=== PATIENT | male | born 1965 | race Caucasian/White ===

== ENCOUNTER 2017-02-19 10:58 | Inpatient (IN) | payer MEDICAID, OTHER ==
[~2017-02-19] VITALS: Ht 182.9 cm; Wt 129.2 kg
[~2017-02-19 10:58] MED LIST: ARIP10TA33 PO; GABA-826 PO; GABA300C10 PO; LISI5TAB7 PO; OXYC5TAB3 PO; PANT20TA3 PO; SUMA25TA3 PO
[2017-02-19 12:03] LABS: HEMATOCRIT 46.2 % (39.2-51.8); HEMOGLOBIN 15.8 g/dL (13.7-18.0); WHITE BLOOD COUNT 7.3 x10^3/uL (3.4-10)
[2017-02-19 12:13] LABS: ASPARTATE AMINO TRANSFERASE 36 U/L (15-37); BLOOD UREA NITROGEN 12 mg/dL (7-18)
[2017-02-19 12:16] LABS: ACETAMINOPHEN < 2 mcg/mL (10-30)
[2017-02-19 13:20] LABS: DAU SCREEN DISCLAIMER
[2017-02-19] MEDS ORDERED: LORazepam 2 MG/ML, 1ML IVPush PRN (16:00)
[2017-02-19] MEDS ORDERED: hydrALAzine 20 MG/ML, 1ML IVPush PRN (16:00)
[2017-02-19] MEDS ORDERED: morphine SULFATE 10 MG/ML, 1ML IVPush PRN (16:00)
[2017-02-19] MEDS: HYDROcodone/APAP 5/325 TABLET PO PRN ×2 (16:28→17:43)
[2017-02-19] MEDS: SODIUM CHLORIDE 0.9% 1,000 ML IV SCH (17:56)
[2017-02-19 18:24] LABS: DAU SCREEN DISCLAIMER
[2017-02-19] MEDS ORDERED: GADOBUTROL 10 MMOL/10 ML PFS ONE (19:18)
[2017-02-19 19:47] VITALS: BP 137/91
[2017-02-19 22:01] VITALS: BP 137/91
[2017-02-20] MEDS ORDERED: OMNIPAQUE 350 MG/ML, 100ML BOTTLE ONE (00:43)
[2017-02-20 02:25] VITALS: BP 136/82
[2017-02-20] MEDS: SODIUM CHLORIDE 0.9% 1,000 ML IV SCH ×3 (03:05→18:14)
[2017-02-20 07:50] VITALS: BP 131/83
[2017-02-20] MEDS: ARIPIPRAZOLE 5 MG TABLET PO SCH (09:35)
[2017-02-20] MEDS: LISINOPRIL 5 MG TABLET PO SCH (09:35)
[2017-02-20] MEDS: ACETAMINOPHEN 325 MG TABLET PO PRN ×2 (09:38→18:09)
[2017-02-20 13:39] VITALS: BP 143/75
[2017-02-20] MEDS: ONDANSETRON 2MG/ML, 2ML IVPush PRN (18:11)
[2017-02-20 20:07] VITALS: BP 137/62
[2017-02-21 01:35] VITALS: BP 134/79
[2017-02-21] MEDS: SODIUM CHLORIDE 0.9% 1,000 ML IV SCH ×2 (02:40→10:38)
[2017-02-21 08:23] VITALS: BP 151/92
[2017-02-21] MEDS: ARIPIPRAZOLE 5 MG TABLET PO SCH (09:07)
[2017-02-21] MEDS: LISINOPRIL 5 MG TABLET PO SCH (09:07)
[2017-02-21] MEDS: ACETAMINOPHEN 325 MG TABLET PO PRN (09:09)
[2017-02-21 13:02] VITALS: BP 148/82
[2017-02-21] MEDS ORDERED: HEPARIN 5,000 UNITS/ML, 1ML IV PRN (15:30)
[2017-02-21] MEDS ORDERED: HEPARIN 25,000 UNITS/500ML PMX 500 ML IV PRN (15:30)
[2017-02-21] MEDS ORDERED: OMNIPAQUE 350 MG/ML, 100ML BOTTLE ONE (15:41)
[2017-02-21 16:26] LABS: HEMATOCRIT 46.5 % (39.2-51.8); HEMOGLOBIN 15.4 g/dL (13.7-18.0); WHITE BLOOD COUNT 6.8 x10^3/uL (3.4-10)
[2017-02-21] MEDS: HEPARIN 25,000 UNITS/500ML PMX 500 ML IV PRN (16:52)
[2017-02-21] MEDS: WARFARIN 7.5 MG TABLET PO-COUM SCH (16:54)
[2017-02-21 18:54] VITALS: BP 147/90
[2017-02-21] MEDS: ONDANSETRON 2MG/ML, 2ML IVPush PRN (23:23)
[2017-02-21] MEDS: LISINOPRIL 10 MG TABLET PO SCH (23:24)
[2017-02-22] MEDS: HEPARIN 5,000 UNITS/ML, 1ML IV PRN ×4 (00:27→21:31)
[2017-02-22 02:00] VITALS: BP 142/88
[2017-02-22] MEDS: LISINOPRIL 10 MG TABLET PO SCH ×2 (07:42→21:34)
[2017-02-22] MEDS: ARIPIPRAZOLE 5 MG TABLET PO SCH (07:42)
[2017-02-22] MEDS: ACETAMINOPHEN 325 MG TABLET PO PRN ×2 (07:42→13:28)
[2017-02-22 13:20] VITALS: BP 149/91
[2017-02-22] MEDS: HEPARIN 25,000 UNITS/500ML PMX 500 ML IV PRN (13:23)
[2017-02-22] MEDS ORDERED: hydrALAzine 20 MG/ML, 1ML IVPush PRN (17:30)
[2017-02-22] MEDS: WARFARIN 7.5 MG TABLET PO-COUM SCH (18:02)
[2017-02-22 19:18] VITALS: BP 150/96
[2017-02-23 02:20] VITALS: BP 150/86
[2017-02-23] MEDS: HEPARIN 25,000 UNITS/500ML PMX 500 ML IV PRN ×2 (05:19→19:42)
[2017-02-23 06:39] VITALS: BP 137/89
[2017-02-23] MEDS: ARIPIPRAZOLE 5 MG TABLET PO SCH (08:49)
[2017-02-23] MEDS: LISINOPRIL 10 MG TABLET PO SCH ×2 (08:49→19:44)
[2017-02-23] MEDS: HEPARIN 5,000 UNITS/ML, 1ML IV PRN (11:26)
[2017-02-23 13:25] VITALS: BP 143/93
[2017-02-23] MEDS: ACETAMINOPHEN 325 MG TABLET PO PRN (18:25)
[2017-02-23] MEDS: WARFARIN 7.5 MG TABLET PO-COUM SCH (18:25)
[2017-02-23 19:50] VITALS: BP 121/90
[2017-02-24 01:40] VITALS: BP 144/96
[2017-02-24] MEDS: HEPARIN 5,000 UNITS/ML, 1ML IV PRN ×2 (03:23→10:10)
[2017-02-24] MEDS: ARIPIPRAZOLE 5 MG TABLET PO SCH (08:44)
[2017-02-24] MEDS: LISINOPRIL 10 MG TABLET PO SCH ×2 (08:44→19:45)
[2017-02-24 08:45] VITALS: BP 138/99
[2017-02-24] MEDS: HEPARIN 25,000 UNITS/500ML PMX 500 ML IV PRN ×2 (10:14→19:45)
[2017-02-24 13:13] VITALS: BP 137/94
[2017-02-24] MEDS: ACETAMINOPHEN 325 MG TABLET PO PRN (18:20)
[2017-02-24] MEDS: WARFARIN 7.5 MG TABLET PO-COUM SCH (18:20)
[2017-02-24 18:39] VITALS: BP 131/88
[2017-02-25 02:58] VITALS: BP 117/77
[2017-02-25] MEDS: HEPARIN 25,000 UNITS/500ML PMX 500 ML IV PRN ×2 (05:22→15:40)
[2017-02-25 07:06] VITALS: BP 121/85
[2017-02-25] MEDS: LISINOPRIL 10 MG TABLET PO SCH ×2 (08:32→20:02)
[2017-02-25] MEDS: ARIPIPRAZOLE 5 MG TABLET PO SCH (08:32)
[2017-02-25] MEDS: ACETAMINOPHEN 325 MG TABLET PO PRN (08:37)
[2017-02-25 13:12] VITALS: BP 113/77
[2017-02-25] MEDS: WARFARIN 5 MG TABLET PO-COUM SCH (17:26)
[2017-02-25 19:09] VITALS: BP 128/80
[2017-02-26 01:18] VITALS: BP 121/76
[2017-02-26] MEDS: HEPARIN 25,000 UNITS/500ML PMX 500 ML IV PRN ×3 (01:20→22:48)
[2017-02-26 05:58] LABS: ANTI-Xa-UNFRACTIONATED HEP 0.51 IU/mL (0.30-0.70)
[2017-02-26 08:30] VITALS: BP 132/84
[2017-02-26] MEDS: LISINOPRIL 10 MG TABLET PO SCH ×2 (08:30→20:42)
[2017-02-26] MEDS ORDERED: ARIPIPRAZOLE 10 MG TABLET PO SCH (09:00)
[2017-02-26 14:27] VITALS: BP 101/72
[2017-02-26] MEDS: WARFARIN 5 MG TABLET PO-COUM SCH (17:51)
[2017-02-26 18:32] VITALS: BP 148/83
[2017-02-26] MEDS ORDERED: ARIPIPRAZOLE 5 MG TABLET PO PRN (23:30)
[2017-02-27 03:42] VITALS: BP 101/72
[2017-02-27 05:28] LABS: ANTI-Xa-UNFRACTIONATED HEP 0.42 IU/mL (0.30-0.70)
[2017-02-27 08:36] VITALS: BP 125/82
[2017-02-27] MEDS: LISINOPRIL 10 MG TABLET PO SCH ×2 (08:55→22:04)
[2017-02-27] MEDS: HEPARIN 25,000 UNITS/500ML PMX 500 ML IV PRN (09:03)
[2017-02-27 14:30] VITALS: BP 111/77
[2017-02-27] MEDS ORDERED: WARFARIN 5 MG TABLET PO-COUM SCH (18:00)
[2017-02-27] MEDS ORDERED: WARFARIN 1 MG TABLET PO-COUM SCH (18:00)
[2017-02-27 19:55] VITALS: BP 112/81
[2017-02-27] MEDS: ENOXAPARIN 120MG/0.8ML SQ SCH (22:04)
[2017-02-27] MEDS: ARIPIPRAZOLE 10 MG TABLET PO SCH (22:05)
[2017-02-28 02:51] VITALS: BP 115/75
[2017-02-28 07:35] VITALS: BP 127/83
[2017-02-28] MEDS: LISINOPRIL 10 MG TABLET PO SCH ×2 (09:48→22:14)
[2017-02-28] MEDS: ENOXAPARIN 120MG/0.8ML SQ SCH ×2 (11:20→22:14)
[2017-02-28 14:30] VITALS: BP 116/84
[2017-02-28] MEDS: WARFARIN 7.5 MG TABLET PO-COUM SCH (18:37)
[2017-02-28] MEDS ORDERED: ARIPIPRAZOLE 5 MG TABLET PO PRN (19:30)
[2017-02-28] MEDS ORDERED: hydrALAzine 20 MG/ML, 1ML IVPush PRN (19:30)
[2017-02-28] MEDS ORDERED: morphine SULFATE 10 MG/ML, 1ML IVPush PRN (19:30)
[2017-02-28] MEDS ORDERED: LORazepam 2 MG/ML, 1ML IVPush PRN (19:30)
[2017-02-28 19:50] VITALS: BP 113/81
[2017-02-28] MEDS: ARIPIPRAZOLE 10 MG TABLET PO SCH (22:14)
[2017-03-01 03:54] VITALS: BP 127/78
[2017-03-01 08:00] VITALS: BP 109/74
[2017-03-01] MEDS: LISINOPRIL 10 MG TABLET PO SCH ×2 (10:32→22:19)
[2017-03-01] MEDS: HYDROcodone/APAP 5/325 TABLET PO PRN (10:32)
[2017-03-01] MEDS: ENOXAPARIN 120MG/0.8ML SQ SCH ×2 (10:32→22:19)
[2017-03-01 13:34] VITALS: BP 114/66
[2017-03-01] MEDS: WARFARIN 7.5 MG TABLET PO-COUM SCH (18:10)
[2017-03-01] MEDS: ACETAMINOPHEN 325 MG TABLET PO PRN (18:10)
[2017-03-01 19:22] VITALS: BP 110/82
[2017-03-01] MEDS: ARIPIPRAZOLE 10 MG TABLET PO SCH (22:19)
[2017-03-02 02:20] VITALS: BP 106/72
[2017-03-02 06:50] VITALS: BP 108/72
[2017-03-02] MEDS: LISINOPRIL 10 MG TABLET PO SCH ×2 (08:34→19:20)
[2017-03-02 14:20] VITALS: BP 115/78
[2017-03-02 18:47] VITALS: BP 125/85
[2017-03-02] MEDS: ARIPIPRAZOLE 10 MG TABLET PO SCH (19:20)
[2017-03-02] MEDS: WARFARIN 7.5 MG TABLET PO-COUM SCH (19:21)
[2017-03-03 03:21] VITALS: BP 139/76
[2017-03-03 08:38] VITALS: BP 109/75
[2017-03-03] MEDS: LISINOPRIL 10 MG TABLET PO SCH ×2 (09:12→20:48)
[2017-03-03 13:17] VITALS: BP 123/87
[2017-03-03] MEDS: WARFARIN 7.5 MG TABLET PO-COUM SCH (18:14)
[2017-03-03 19:02] VITALS: BP 127/75
[2017-03-03] MEDS: ARIPIPRAZOLE 10 MG TABLET PO SCH (20:48)
[2017-03-04 02:00] VITALS: BP 108/73
[2017-03-04 07:45] VITALS: BP 127/76
[2017-03-04] MEDS: LISINOPRIL 10 MG TABLET PO SCH ×2 (08:38→21:43)
[2017-03-04 15:14] VITALS: BP 126/82
[2017-03-04] MEDS: WARFARIN 7.5 MG TABLET PO-COUM SCH (17:26)
[2017-03-04 20:00] VITALS: BP 118/79
[2017-03-04] MEDS: ARIPIPRAZOLE 10 MG TABLET PO SCH (21:43)
[2017-03-04] MEDS: ACETAMINOPHEN 325 MG TABLET PO PRN (21:43)
[2017-03-05 00:15] VITALS: BP 102/63
[2017-03-05 07:35] VITALS: BP 106/68
[2017-03-05] MEDS: LISINOPRIL 10 MG TABLET PO SCH ×2 (09:05→21:04)
[2017-03-05 15:22] VITALS: BP 106/74
[2017-03-05] MEDS: ACETAMINOPHEN 325 MG TABLET PO PRN (15:47)
[2017-03-05] MEDS: WARFARIN 7.5 MG TABLET PO-COUM SCH (18:30)
[2017-03-05 18:56] VITALS: BP 115/78
[2017-03-05] MEDS: ARIPIPRAZOLE 10 MG TABLET PO SCH (21:04)
[2017-03-06 00:46] VITALS: BP 116/82
[2017-03-06 07:41] VITALS: BP 105/66
[2017-03-06] MEDS: LISINOPRIL 10 MG TABLET PO SCH ×2 (09:00→20:42)
[2017-03-06] MEDS: HYDROcodone/APAP 5/325 TABLET PO PRN (09:34)
[2017-03-06 13:31] VITALS: BP 131/89
[2017-03-06] MEDS: WARFARIN 7.5 MG TABLET PO-COUM SCH (19:07)
[2017-03-06] MEDS: ACETAMINOPHEN 325 MG TABLET PO PRN (19:10)
[2017-03-06 20:00] VITALS: BP 115/81
[2017-03-06] MEDS ORDERED: LISINOPRIL 5 MG TABLET ONE (20:40)
[2017-03-06] MEDS: ARIPIPRAZOLE 10 MG TABLET PO SCH (20:42)
[2017-03-07 07:22] VITALS: BP 100/63
[2017-03-07 09:20] VITALS: BP 104/63
[2017-03-07] MEDS: LISINOPRIL 10 MG TABLET PO SCH (09:25)
[2017-03-07] MEDS: ACETAMINOPHEN 325 MG TABLET PO PRN (09:31)
[2017-03-07] MEDS ORDERED: LISI-167 PO (12:20)
[2017-03-07] MEDS ORDERED: ARIP10TA33 PO (12:20)
[2017-03-07] MEDS ORDERED: WARF7.5T PO-COUM (12:20)
== END 2017-03-07 12:50 | DRG 70 ==
LOC: ED 12:34 → EDIP 14:17 → 3NE 15:41 → 3E 03-06 19:53
PROVIDERS: ADMIT Hospitalist; ATTEND Hospitalist
DX: G93.40 Encephalopathy, unspecified (principal); G08 Intracranial and intraspinal phlebitis and thrombophlebitis; D68.69 Other thrombophilia; F22 Delusional disorders; I50.9 Heart failure, unspecified; E11.40 Type 2 diabetes mellitus with diabetic neuropathy, unspecified; I11.0 Hypertensive heart disease with heart failure; R45.851 Suicidal ideations; F31.9 Bipolar disorder, unspecified; M19.90 Unspecified osteoarthritis, unspecified site; M10.9 Gout, unspecified; K21.9 Gastro-esophageal reflux disease without esophagitis; G89.29 Other chronic pain; F43.10 Post-traumatic stress disorder, unspecified; E11.9 Type 2 diabetes mellitus without complications; G43.909 Migraine, unspecified, not intractable, without status migrainosus; H54.7 Unspecified visual loss; Z91.83 Wandering in diseases classified elsewhere; Z59.0 Homelessness; Z82.49 Family history of ischemic heart disease and other diseases of the circulatory system; X31.XXXA Exposure to excessive natural cold, initial encounter; Z79.899 Other long term (current) drug therapy; Z87.01 Personal history of pneumonia (recurrent)
CPT/HCPCS: 36415; 70470; 70496; 70553; 71010; 80053; 80307; 80329; 81003; 82140; 84439; 84443; 85025; 85520; 85610; 87040; 99285; A9585; J1644; J1650; J2405; Q9967; G0479; G0480; J7030

== ENCOUNTER 2017-04-10 11:56 | Emergency (ER) | payer MEDICAID, OTHER ==
[~2017-04-10] VITALS: Ht 193 cm; Wt 131.0 kg
[~2017-04-10 11:56] MED LIST changes: +LISI-167 PO; +WARF7.5T PO-COUM
[2017-04-10 11:58] VITALS: BP 138/89
== END 2017-04-10 13:10 | disposition home or self-care (01) ==
LOC: ED 12:45
DX: Z76.0 Encounter for issue of repeat prescription (principal); I10 Essential (primary) hypertension; E11.9 Type 2 diabetes mellitus without complications
CPT/HCPCS: 36415; 85610; 99283

== ENCOUNTER 2018-07-26 15:03 | Inpatient (IN) | payer MEDICAID ==
[~2018-07-26] VITALS: Ht 193 cm; Wt 140.8 kg
[~2018-07-26 15:03] MED LIST changes: +BUTA-177 PO; +ENOX60SY4 SQ; +ENOX80SY4 SQ; +WARF10TA43 PO
[2018-07-26] MEDS ORDERED: ALBUTEROL/IPRATROPIUM 2.5MG/0.5MG, 3 ML ONE (15:09)
--- NOTE | 2018-07-26 15:13 | NUR ---
PTS BELONGINGS LOCKED UP IN SECURE LOCKER AND LABELED. PT WILL BE MOVED TO A SECURED ROOM WHEN AVAILABLE. PT PLACED ON CONT. 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
--- NOTE | 2018-07-26 15:13 | NUR ---
BIBA FOR SUICIDE ATTEMPT. PT INGESTED ARSENIC X 2 TODAY "I THOUGHT IT WOULD BE QUICK". FIRST INGESTION WAS AROUND 9AM STATES IT WAS ABOUT A PINCH, WHICH HE WAS ABLE TO KEEP DOWN. THEN AROUND "LUNCHTIME" INGESTED ABOUT A TEASPOON, STARTED VOMITING ALMOST IMMEDIATELY. NOW STATES HE HAS A SHARP HEADACHE, DIZZY, FACE AND TONGUE ARE NUMB. 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
--- NOTE | 2018-07-26 15:50 | NUR ---
i am assuming care of this pt from leonel (rashid) at this time. sbar report was exchanged at the bedside.
[2018-07-26 15:56] LABS: BASOPHILS # (AUTO) 0.08 x10^3/uL (0-0.1); BASOPHILS % (AUTO) 1 % (0-1); EOSINOPHILS # (AUTO) 0.14 x10^3/uL (0-0.4); EOSINOPHILS % (AUTO) 2 % (1-7); LYMPHOCYTES # (AUTO) 3.04 x10^3/uL (1-3.4); LYMPHOCYTES % (AUTO) 36 % (22-44); MD NO; MEAN CORPUSCULAR HEMOGLOBIN 30.2 pg (27.5-34.5); MEAN CORPUSCULAR HGB CONC 33.3 g/dL (33.2-36.2); MEAN CORPUSCULAR VOLUME 90.6 fL (81-97); MEAN PLATELET VOLUME 10.9 fL (7.4-10.4); MONOCYTES % (AUTO) 9 % (2-9); NEUTROPHILS # (AUTO) 4.44 x10^3/uL (1.8-6.8); NEUTROPHILS % (AUTO) 52 % (42-75); PLATELET COUNT 191 x10^3/uL (130-400); RED BLOOD COUNT 5.46 x10^6/uL (4.38-5.82); RED CELL DISTRIBUTION WIDTH 13.7 % (9.4-14.8)
[2018-07-26 15:57] LABS: PH, VENOUS 7.424 pH (7.320-7.420)
--- NOTE | 2018-07-26 16:01 | NUR ---
TASK RN: PT IS RESTING IN ROOM WITH NADN, EQUAL CHEST RISE AND GOOD CAP REFILL, NADN. NO NEEDS AT THIS TIME.
[2018-07-26 16:09] LABS: ALBUMIN 4.1 g/dL (3.4-5.0); CALCIUM 8.4 mg/dL (8.5-10.1); CHLORIDE 111 mmol/L (98-107)
[2018-07-26 16:10] LABS: O2 FLOW ROOM AIR L/min
[2018-07-26 16:14] LABS: ALANINE AMINOTRANSFERASE 52 U/L (12-78); ALKALINE PHOSPHATASE 87 U/L (45-117); ANION GAP 6 mmol/L (5-15); BILIRUBIN,TOTAL 0.5 mg/dL (0.2-1.0); CREATININE 1.07 mg/dL (0.7-1.3)
[2018-07-26 16:15] LABS: ACETAMINOPHEN < 2 mcg/mL (10-30); SALICYLATE LEVEL < 1.7 mg/dL (2.8-20.0)
[2018-07-26 16:22] LABS: INTERNATIONAL NORMALIZED RATIO 0.96 (0.93-1.1); PROTHROMBIN TIME 10.1 Seconds (9.6-11.5)
--- NOTE | 2018-07-26 16:44 | NUR ---
PT IS RESTING COMFORTABLY ON AN E.R. GURNEY WHILE AWAITING THE RESULTS OF DIAGNOSTICS. THERE ARE NO ACUTE CHANGES NTED AT THIS TIME, AND I WILL CONTINUE TO MONITOR AND TREAT ORDERED, WELL PRN.
--- NOTE | 2018-07-26 17:42 | NUR ---
PT AMBULATED TO AND FROM THE RESTROOM WITH A STEADY GAIT. URINE SAMPLE PROVIDED, AND WALKED TO THE LAB FOR ANALYSIS.
--- NOTE | 2018-07-26 17:51 | NUR ---
[facility] REQUESTED FOR PT NOURISHMENT AND COMFORT.
[2018-07-26] MEDS ORDERED: ENALAPRILAT 1.25 MG/ML, 2ML IVPush PRN (18:00)
[2018-07-26] MEDS ORDERED: ONDANSETRON ODT 4 MG PO PRN (18:00)
[2018-07-26] MEDS ORDERED: GUAIFENESIN/DM 200-20MG, 10ML UDC PO PRN (18:00)
[2018-07-26 18:07] LABS: AMPHETAMINE SCREEN, URINE Negative (Negative); BARBITURATE SCREEN, URINE Negative (Negative); BENZODIAZEPINE SCREEN, URINE Negative (Negative); CANNABINOID SCREEN, URINE Negative (Negative); COCAINE SCREEN, URINE Negative (Negative); METHADONE SCREEN, URINE Negative (Negative); OPIATE SCREEN, URINE Negative (Negative)
--- NOTE | 2018-07-26 18:27 | NUR ---
PACKET FAXED TO [facility], [facility], [facility]
--- NOTE | 2018-07-26 18:57 | NUR ---
RAQUEL (RN) IS ASSUMING CARE OF THIS PT AT THIS TIME. SBAR REPORT WAS EXCHANGED AT THE BEDSIDE.
--- NOTE | 2018-07-26 19:00 | NUR ---
REPORT RECEIVED FROM ANNIKA KAUR, ASSUMED CARE OF PT. P RESTING QUIETLY, NO DISTRESS NOTED, STATES CAN'T GET TASTE OUT OF HIS MOUTH. CALM AND COOPERATIVE, NO S/S INTERNAL BLEEDING
[2018-07-26] MEDS: LACTATED RINGERS 1,000 ML IV SCH (20:30)
--- NOTE | 2018-07-26 20:35 | NUR ---
PT RESTING QUIETLY, NO DISTRESS NOTED, VSS, CALL LIGHT IN REACH, SITTER OUTSIDE DOOR
--- NOTE | 2018-07-26 21:30 | NUR ---
PT RESTING QUIETLY, NO DISTRESS NOTED, SITTER OUTSIDE DOOR
--- NOTE | 2018-07-26 22:22 | NUR ---
REPORT GIVEN TO ANNIKA WARREN
[2018-07-26 22:35] VITALS: BP 147/87
[2018-07-26] MEDS ORDERED: IBUP-1623 PO (23:10)
[2018-07-26] MEDS ORDERED: ACET325C5 PO (23:10)
[2018-07-26] MEDS ORDERED: DM/P1POW2 PO (23:10)
[2018-07-27 00:48] VITALS: BP 137/88
[2018-07-27] MEDS: CYCLOBENZAPRINE 10 MG TABLET PO PRN ×3 (01:02→20:42)
[2018-07-27 06:56] LABS: BASOPHILS # (AUTO) 0.03 x10^3/uL (0-0.1); BASOPHILS % (AUTO) 0 % (0-1); EOSINOPHILS # (AUTO) 0.18 x10^3/uL (0-0.4); EOSINOPHILS % (AUTO) 3 % (1-7); LYMPHOCYTES # (AUTO) 1.64 x10^3/uL (1-3.4); LYMPHOCYTES % (AUTO) 26 % (22-44); MD NO; MEAN CORPUSCULAR HEMOGLOBIN 30.1 pg (27.5-34.5); MEAN CORPUSCULAR HGB CONC 33.1 g/dL (33.2-36.2); MEAN CORPUSCULAR VOLUME 90.7 fL (81-97); MEAN PLATELET VOLUME 10.1 fL (7.4-10.4); MONOCYTES # (AUTO) 0.57 x10^3/uL (0.2-0.8); MONOCYTES % (AUTO) 9 % (2-9); NEUTROPHILS # (AUTO) 3.81 x10^3/uL (1.8-6.8); NEUTROPHILS % (AUTO) 61 % (42-75); PLATELET COUNT 164 x10^3/uL (130-400); RED BLOOD COUNT 5.24 x10^6/uL (4.38-5.82); RED CELL DISTRIBUTION WIDTH 13.8 % (9.4-14.8)
[2018-07-27 07:06] LABS: ALBUMIN 3.3 g/dL (3.4-5.0); ANION GAP 4 mmol/L (5-15); CHLORIDE 111 mmol/L (98-107)
[2018-07-27 07:18] LABS: ALANINE AMINOTRANSFERASE 45 U/L (12-78); ALKALINE PHOSPHATASE 75 U/L (45-117); BILIRUBIN,TOTAL 0.6 mg/dL (0.2-1.0); TOTAL PROTEIN 6.4 g/dL (6.4-8.2)
[2018-07-27 09:53] VITALS: BP 146/86
[2018-07-27 15:02] VITALS: BP 143/87
[2018-07-27] MEDS: LACTATED RINGERS 1,000 ML IV SCH (15:03)
[2018-07-27 20:32] VITALS: BP 138/89
[2018-07-28 02:00] VITALS: BP 123/71
[2018-07-28] MEDS: CYCLOBENZAPRINE 10 MG TABLET PO PRN (05:10)
[2018-07-28 07:56] VITALS: BP 127/73
[2018-07-28] MEDS: LACTATED RINGERS 1,000 ML IV SCH (09:12)
[2018-07-28 14:06] VITALS: BP 122/76
[2018-07-28] MEDS: ACETAMINOPHEN 325 MG TABLET PO PRN ×2 (16:51→20:31)
[2018-07-28 19:24] VITALS: BP 150/93
== END 2018-07-28 21:45 | DRG 918 ==
LOC: ED 17:43 → EDIP 17:44 → 4EST 22:38
PROVIDERS: ADMIT Hospitalist; ATTEND Hospitalist
DX: T60.4X2A Toxic effect of rodenticides, intentional self-harm, initial encounter (principal); D68.59 Other primary thrombophilia; R45.851 Suicidal ideations; T39.1X2A Poisoning by 4-Aminophenol derivatives, intentional self-harm, initial encounter; Y92.89 Other specified places as the place of occurrence of the external cause; E11.9 Type 2 diabetes mellitus without complications; F12.90 Cannabis use, unspecified, uncomplicated; F31.9 Bipolar disorder, unspecified; F43.10 Post-traumatic stress disorder, unspecified; I10 Essential (primary) hypertension; M19.90 Unspecified osteoarthritis, unspecified site; Z81.8 Family history of other mental and behavioral disorders
CPT/HCPCS: 36415; 80053; 80307; 80329; 82803; 83735; 84100; 84443; 85025; 85610; 85730; 93005; 94640; 99285; G0378; G0480; J7120

== ENCOUNTER 2018-07-28 14:16 | Inpatient (IN) | payer MEDICAID ==
[~2018-07-28] VITALS: Ht 193 cm; Wt 128.2 kg
[~2018-07-28 14:16] MED LIST changes: +ACET325C5 PO; +DM/P1POW2 PO; +IBUP-1623 PO
[2018-07-28 20:45] VITALS: BP_SYST 123; BP_SYST 138; BP_SYST 150; BP_DIAS 91; BP_DIAS 92
[2018-07-28] MEDS ORDERED: PLEASE ENTER HEIGHT AND WEIGHT MC SCH (21:23)
[2018-07-28] MEDS ORDERED: POLYETHYLENE GLYCOL 17 GM PACKET PO PRN ×2 (21:30→22:00)
[2018-07-28] MEDS ORDERED: BISACODYL 10 MG SUPP PR PRN (21:30)
[2018-07-28] MEDS ORDERED: DOCUSATE 100 MG CAPSULE PO PRN (21:30)
[2018-07-28] MEDS ORDERED: hydrALAzine 20 MG/ML, 1ML IVPush PRN (22:00)
[2018-07-28] MEDS: MELATONIN 5 MG TABLET PO SCH (22:50)
[2018-07-29 07:41] VITALS: BP 129/86
[2018-07-29] MEDS: ACETAMINOPHEN 325 MG TABLET PO PRN (15:21)
[2018-07-29] MEDS: MELATONIN 5 MG TABLET PO SCH (20:27)
[2018-07-29] MEDS: OXCARBAZEPINE 150 MG TABLET PO SCH (20:27)
[2018-07-29 20:37] VITALS: BP 133/84
[2018-07-30 07:39] VITALS: BP 136/86
[2018-07-30] MEDS: BUPROPION SR 150 MG TABLET PO SCH (09:06)
[2018-07-30] MEDS: ACETAMINOPHEN 325 MG TABLET PO PRN (09:31)
[2018-07-30 19:47] VITALS: BP 137/98
[2018-07-30] MEDS: MELATONIN 5 MG TABLET PO SCH (19:56)
[2018-07-30] MEDS: QUETIAPINE 100MG TABLET PO SCH (19:57)
[2018-07-30] MEDS: OXCARBAZEPINE 150 MG TABLET PO SCH (19:57)
[2018-07-31 07:23] VITALS: BP 113/85
[2018-07-31] MEDS: BUPROPION SR 150 MG TABLET PO SCH (09:26)
[2018-07-31] MEDS: OXCARBAZEPINE 150 MG TABLET PO SCH (19:34)
[2018-07-31] MEDS: QUETIAPINE 100MG TABLET PO SCH (19:34)
[2018-07-31] MEDS: ACETAMINOPHEN 325 MG TABLET PO PRN (19:34)
[2018-07-31] MEDS: MELATONIN 5 MG TABLET PO SCH (19:34)
[2018-07-31 20:00] VITALS: BP 134/97
[2018-08-01 07:45] VITALS: BP 123/81
[2018-08-01] MEDS: BUPROPION SR 150 MG TABLET PO SCH (09:40)
[2018-08-01] MEDS: ACETAMINOPHEN 325 MG TABLET PO PRN (14:40)
[2018-08-01 20:02] VITALS: BP 134/95
[2018-08-01] MEDS: OXCARBAZEPINE 150 MG TABLET PO SCH (20:21)
[2018-08-01] MEDS: MELATONIN 5 MG TABLET PO SCH (20:21)
[2018-08-01] MEDS: QUETIAPINE 100MG TABLET PO SCH (20:21)
[2018-08-02] MEDS: BUPROPION SR 150 MG TABLET PO SCH (08:15)
[2018-08-02] MEDS: ACETAMINOPHEN 325 MG TABLET PO PRN (08:18)
[2018-08-02 08:34] VITALS: BP 138/89
[2018-08-02 19:27] VITALS: BP 123/83
[2018-08-02] MEDS: OXCARBAZEPINE 150 MG TABLET PO SCH (20:24)
[2018-08-02] MEDS: MELATONIN 5 MG TABLET PO SCH (20:24)
[2018-08-02] MEDS: QUETIAPINE 100MG TABLET PO SCH (20:24)
[2018-08-03 07:30] VITALS: BP 136/86
[2018-08-03] MEDS: BUPROPION SR 150 MG TABLET PO SCH (11:35)
[2018-08-03 19:54] VITALS: BP 146/78
[2018-08-03] MEDS: OXCARBAZEPINE 150 MG TABLET PO SCH (20:49)
[2018-08-03] MEDS: MELATONIN 5 MG TABLET PO SCH (20:50)
[2018-08-03] MEDS: QUETIAPINE 100MG TABLET PO SCH (20:52)
[2018-08-04 08:00] VITALS: BP 118/82
[2018-08-04] MEDS: BUPROPION SR 150 MG TABLET PO SCH (08:49)
[2018-08-04] MEDS: ALLOPURINOL 300 MG TABLET PO SCH (08:49)
[2018-08-04] MEDS: ACETAMINOPHEN 325 MG TABLET PO PRN ×2 (08:49→20:53)
[2018-08-04 20:00] VITALS: BP 110/72
[2018-08-04] MEDS: MELATONIN 5 MG TABLET PO SCH (20:52)
[2018-08-04] MEDS: OXCARBAZEPINE 150 MG TABLET PO SCH (20:53)
[2018-08-04] MEDS: QUETIAPINE 100MG TABLET PO SCH (20:53)
[2018-08-05 08:00] VITALS: BP 142/86
[2018-08-05] MEDS: BUPROPION SR 150 MG TABLET PO SCH (08:59)
[2018-08-05] MEDS: ACETAMINOPHEN 325 MG TABLET PO PRN (08:59)
[2018-08-05] MEDS: ALLOPURINOL 300 MG TABLET PO SCH (08:59)
[2018-08-05 20:15] VITALS: BP 137/97
[2018-08-05] MEDS: OXCARBAZEPINE 150 MG TABLET PO SCH (21:28)
[2018-08-05] MEDS: MELATONIN 5 MG TABLET PO SCH (21:28)
[2018-08-05] MEDS: QUETIAPINE 100MG TABLET PO SCH (21:28)
[2018-08-06 07:34] VITALS: BP 127/88
[2018-08-06] MEDS: BUPROPION SR 150 MG TABLET PO SCH (08:32)
[2018-08-06] MEDS: ALLOPURINOL 300 MG TABLET PO SCH (08:33)
[2018-08-06 19:53] VITALS: BP 128/95
[2018-08-06] MEDS: OXCARBAZEPINE 150 MG TABLET PO SCH (21:55)
[2018-08-06] MEDS: QUETIAPINE 100MG TABLET PO SCH (21:56)
[2018-08-06] MEDS: MELATONIN 5 MG TABLET PO SCH (21:56)
[2018-08-07 07:24] VITALS: BP 149/90
[2018-08-07 07:56] LABS: CHOL/HDL RATIO 6.6; LDL/HDL RATIO 3.9 (0.5-3.0)
[2018-08-07] MEDS: BUPROPION SR 150 MG TABLET PO SCH (09:36)
[2018-08-07] MEDS: ALLOPURINOL 300 MG TABLET PO SCH (09:36)
[2018-08-07 19:55] VITALS: BP 138/100
[2018-08-07] MEDS: MELATONIN 5 MG TABLET PO SCH (20:16)
[2018-08-07] MEDS: QUETIAPINE 100MG TABLET PO SCH (20:16)
[2018-08-07] MEDS: OXCARBAZEPINE 150 MG TABLET PO SCH (20:16)
[2018-08-08 07:40] VITALS: BP 136/88
[2018-08-08] MEDS: BUPROPION SR 150 MG TABLET PO SCH (08:20)
[2018-08-08] MEDS: ALLOPURINOL 300 MG TABLET PO SCH (08:21)
[2018-08-08 19:47] VITALS: BP 130/94
[2018-08-08] MEDS: QUETIAPINE 100MG TABLET PO SCH (19:54)
[2018-08-08] MEDS: MELATONIN 5 MG TABLET PO SCH (19:54)
[2018-08-08] MEDS: OXCARBAZEPINE 150 MG TABLET PO SCH (19:54)
[2018-08-09 07:19] VITALS: BP 132/81
[2018-08-09] MEDS: ALLOPURINOL 300 MG TABLET PO SCH (09:00)
[2018-08-09] MEDS: BUPROPION SR 150 MG TABLET PO SCH (09:00)
[2018-08-09] MEDS: OXCARBAZEPINE 150 MG TABLET PO SCH (20:04)
[2018-08-09] MEDS: MELATONIN 5 MG TABLET PO SCH ×2 (20:04→20:07)
[2018-08-09] MEDS: QUETIAPINE 100MG TABLET PO SCH (20:04)
[2018-08-09 20:05] VITALS: BP 139/97
[2018-08-10 07:32] VITALS: BP 130/95
[2018-08-10] MEDS: BUPROPION SR 150 MG TABLET PO SCH (09:57)
[2018-08-10] MEDS: ALLOPURINOL 300 MG TABLET PO SCH (09:57)
[2018-08-10 20:00] VITALS: BP 129/81
[2018-08-10] MEDS: QUETIAPINE 100MG TABLET PO SCH (20:28)
[2018-08-10] MEDS: MELATONIN 5 MG TABLET PO SCH (20:28)
[2018-08-10] MEDS: OXCARBAZEPINE 150 MG TABLET PO SCH (20:28)
[2018-08-11 07:50] VITALS: BP 137/92
[2018-08-11] MEDS: ALLOPURINOL 300 MG TABLET PO SCH (08:30)
[2018-08-11] MEDS: BUPROPION SR 150 MG TABLET PO SCH (08:30)
[2018-08-11] MEDS: QUETIAPINE 100MG TABLET PO SCH (20:24)
[2018-08-11] MEDS: OXCARBAZEPINE 150 MG TABLET PO SCH (20:24)
[2018-08-11] MEDS: MELATONIN 5 MG TABLET PO SCH (20:24)
[2018-08-11 20:35] VITALS: BP 100/65
[2018-08-12 07:36] VITALS: BP 129/88
[2018-08-12] MEDS: BUPROPION SR 150 MG TABLET PO SCH (08:08)
[2018-08-12] MEDS: ALLOPURINOL 300 MG TABLET PO SCH (08:08)
[2018-08-12 19:54] VITALS: BP 129/86
[2018-08-12] MEDS: OXCARBAZEPINE 150 MG TABLET PO SCH (20:07)
[2018-08-12] MEDS: MELATONIN 5 MG TABLET PO SCH (20:07)
[2018-08-12] MEDS: QUETIAPINE 100MG TABLET PO SCH (20:07)
[2018-08-13 07:56] VITALS: BP 104/68
[2018-08-13] MEDS: ALLOPURINOL 300 MG TABLET PO SCH (08:24)
[2018-08-13] MEDS: BUPROPION SR 150 MG TABLET PO SCH (08:24)
[2018-08-13 20:10] VITALS: BP 131/88
[2018-08-13] MEDS: MELATONIN 5 MG TABLET PO SCH (20:19)
[2018-08-13] MEDS: OXCARBAZEPINE 150 MG TABLET PO SCH (20:19)
[2018-08-13] MEDS: QUETIAPINE 100MG TABLET PO SCH (20:19)
[2018-08-14 07:25] VITALS: BP 108/77
[2018-08-14] MEDS: BUPROPION SR 150 MG TABLET PO SCH (08:40)
[2018-08-14] MEDS: ALLOPURINOL 300 MG TABLET PO SCH (08:40)
[2018-08-14 19:52] VITALS: BP 120/83
[2018-08-14] MEDS: OXCARBAZEPINE 150 MG TABLET PO SCH (20:35)
[2018-08-14] MEDS: QUETIAPINE 100MG TABLET PO SCH (20:35)
[2018-08-14] MEDS: MELATONIN 5 MG TABLET PO SCH (20:36)
[2018-08-15 07:47] VITALS: BP 138/87
[2018-08-15] MEDS: BUPROPION SR 150 MG TABLET PO SCH (09:08)
[2018-08-15] MEDS: ALLOPURINOL 300 MG TABLET PO SCH (09:08)
[2018-08-15 19:54] VITALS: BP 147/90
[2018-08-15] MEDS: ACETAMINOPHEN 325 MG TABLET PO PRN (20:28)
[2018-08-15] MEDS: MELATONIN 5 MG TABLET PO SCH (20:28)
[2018-08-15] MEDS: QUETIAPINE 100MG TABLET PO SCH (20:28)
[2018-08-15] MEDS: OXCARBAZEPINE 150 MG TABLET PO SCH (20:28)
[2018-08-16 07:35] VITALS: BP 124/85
[2018-08-16] MEDS: BUPROPION SR 150 MG TABLET PO SCH (08:23)
[2018-08-16] MEDS: ALLOPURINOL 300 MG TABLET PO SCH (08:24)
[2018-08-16 19:35] VITALS: BP 128/87
[2018-08-16] MEDS: QUETIAPINE 100MG TABLET PO SCH ×2 (20:39→20:43)
[2018-08-16] MEDS: OXCARBAZEPINE 150 MG TABLET PO SCH ×2 (20:39→20:43)
[2018-08-16] MEDS: MELATONIN 5 MG TABLET PO SCH ×2 (20:39→20:43)
[2018-08-17 07:08] VITALS: BP 129/83
[2018-08-17] MEDS: ALLOPURINOL 300 MG TABLET PO SCH (08:38)
[2018-08-17] MEDS: BUPROPION SR 150 MG TABLET PO SCH (08:39)
[2018-08-17 19:41] VITALS: BP 126/86
[2018-08-17] MEDS: OXCARBAZEPINE 150 MG TABLET PO SCH (20:10)
[2018-08-17] MEDS: MELATONIN 5 MG TABLET PO SCH (20:10)
[2018-08-17] MEDS: QUETIAPINE 100MG TABLET PO SCH (20:10)
[2018-08-18 07:36] VITALS: BP 115/80
[2018-08-18] MEDS: BUPROPION SR 150 MG TABLET PO SCH ×2 (09:00→13:07)
[2018-08-18] MEDS: ALLOPURINOL 300 MG TABLET PO SCH (09:00)
[2018-08-18 19:46] VITALS: BP 125/78
[2018-08-18] MEDS: OXCARBAZEPINE 150 MG TABLET PO SCH (20:18)
[2018-08-18] MEDS: MELATONIN 5 MG TABLET PO SCH (20:18)
[2018-08-18] MEDS: QUETIAPINE 100MG TABLET PO SCH (20:18)
[2018-08-19 07:52] VITALS: BP 132/83
[2018-08-19] MEDS: ALLOPURINOL 300 MG TABLET PO SCH (08:16)
[2018-08-19] MEDS: BUPROPION SR 150 MG TABLET PO SCH ×2 (08:16→11:43)
[2018-08-19 14:04] LABS: BASOPHILS # (AUTO) 0.03 x10^3/uL (0-0.1); BASOPHILS % (AUTO) 1 % (0-1); EOSINOPHILS # (AUTO) 0.11 x10^3/uL (0-0.4); EOSINOPHILS % (AUTO) 2 % (1-7); LYMPHOCYTES # (AUTO) 1.28 x10^3/uL (1-3.4); LYMPHOCYTES % (AUTO) 23 % (22-44); MD NO; MEAN CORPUSCULAR HEMOGLOBIN 30.7 pg (27.5-34.5); MEAN CORPUSCULAR HGB CONC 34.1 g/dL (33.2-36.2); MEAN CORPUSCULAR VOLUME 89.8 fL (81-97); MEAN PLATELET VOLUME 10.7 fL (7.4-10.4); MONOCYTES # (AUTO) 0.45 x10^3/uL (0.2-0.8); MONOCYTES % (AUTO) 8 % (2-9); NEUTROPHILS # (AUTO) 3.64 x10^3/uL (1.8-6.8); NEUTROPHILS % (AUTO) 66 % (42-75); PLATELET COUNT 186 x10^3/uL (130-400); RED BLOOD COUNT 5.63 x10^6/uL (4.38-5.82); RED CELL DISTRIBUTION WIDTH 13.5 % (9.4-14.8)
[2018-08-19 14:11] VITALS: BP 129/87
[2018-08-19 14:13] LABS: ALANINE AMINOTRANSFERASE 55 U/L (12-78); ALBUMIN 3.9 g/dL (3.4-5.0); ANION GAP 8 mmol/L (5-15); CALCIUM 8.9 mg/dL (8.5-10.1); CHLORIDE 110 mmol/L (98-107); CREATININE 1.08 mg/dL (0.7-1.3)
[2018-08-19 14:16] LABS: ALKALINE PHOSPHATASE 93 U/L (45-117); BILIRUBIN,TOTAL 0.7 mg/dL (0.2-1.0); TOTAL PROTEIN 6.9 g/dL (6.4-8.2)
[2018-08-19] MEDS: SODIUM CHLORIDE 0.9% 1,000 ML IV SCH (20:00)
[2018-08-19] MEDS: MELATONIN 5 MG TABLET PO SCH ×2 (20:34→21:00)
[2018-08-19] MEDS: QUETIAPINE 100MG TABLET PO SCH ×2 (20:35→21:00)
[2018-08-19] MEDS: OXCARBAZEPINE 150 MG TABLET PO SCH ×2 (20:35→21:00)
[2018-08-19 22:11] VITALS: BP 135/96
[2018-08-20] MEDS: SODIUM CHLORIDE 0.9% 1,000 ML IV SCH ×2 (04:55→13:15)
[2018-08-20 07:42] VITALS: BP 138/88
[2018-08-20] MEDS: BUPROPION SR 150 MG TABLET PO SCH ×2 (08:55→12:00)
[2018-08-20] MEDS: ALLOPURINOL 300 MG TABLET PO SCH (08:55)
[2018-08-20] MEDS: FENOFIBRATE 145 MG TABLET PO SCH (08:55)
[2018-08-20 19:59] VITALS: BP 132/82
[2018-08-20] MEDS: OXCARBAZEPINE 150 MG TABLET PO SCH (21:03)
[2018-08-20] MEDS: QUETIAPINE 100MG TABLET PO SCH (21:03)
[2018-08-20] MEDS: MELATONIN 5 MG TABLET PO SCH (21:03)
[2018-08-21 07:15] VITALS: BP 120/78
[2018-08-21] MEDS: ALLOPURINOL 300 MG TABLET PO SCH (08:38)
[2018-08-21] MEDS: BUPROPION SR 150 MG TABLET PO SCH ×2 (08:39→12:14)
[2018-08-21] MEDS: FENOFIBRATE 145 MG TABLET PO SCH (08:39)
[2018-08-21] MEDS: ACETAMINOPHEN 325 MG TABLET PO PRN (12:16)
[2018-08-21 19:47] VITALS: BP 138/87
[2018-08-21] MEDS: MELATONIN 5 MG TABLET PO SCH (20:00)
[2018-08-21] MEDS: OXCARBAZEPINE 150 MG TABLET PO SCH (20:00)
[2018-08-21] MEDS: QUETIAPINE 100MG TABLET PO SCH (20:00)
[2018-08-22 07:39] VITALS: BP 133/84
[2018-08-22] MEDS: ALLOPURINOL 300 MG TABLET PO SCH (09:52)
[2018-08-22] MEDS: FENOFIBRATE 145 MG TABLET PO SCH (09:52)
[2018-08-22] MEDS: BUPROPION SR 150 MG TABLET PO SCH ×2 (09:52→12:28)
[2018-08-22 19:52] VITALS: BP 148/98
[2018-08-22] MEDS: OXCARBAZEPINE 150 MG TABLET PO SCH (20:33)
[2018-08-22] MEDS: MELATONIN 5 MG TABLET PO SCH (20:33)
[2018-08-22] MEDS: QUETIAPINE 100MG TABLET PO SCH (20:33)
[2018-08-23 07:48] VITALS: BP 138/87
[2018-08-23] MEDS: FENOFIBRATE 145 MG TABLET PO SCH (08:36)
[2018-08-23] MEDS: ACETAMINOPHEN 325 MG TABLET PO PRN (08:36)
[2018-08-23] MEDS: BUPROPION SR 150 MG TABLET PO SCH ×3 (08:36→12:32)
[2018-08-23] MEDS: ALLOPURINOL 300 MG TABLET PO SCH (08:37)
[2018-08-23 19:29] VITALS: BP 121/83
[2018-08-23] MEDS: OXCARBAZEPINE 150 MG TABLET PO SCH (20:23)
[2018-08-23] MEDS: MELATONIN 5 MG TABLET PO SCH (20:23)
[2018-08-23] MEDS: QUETIAPINE 100MG TABLET PO SCH (20:23)
[2018-08-24 07:50] VITALS: BP 125/88
[2018-08-24] MEDS: ALLOPURINOL 300 MG TABLET PO SCH (08:14)
[2018-08-24] MEDS: BUPROPION SR 150 MG TABLET PO SCH ×2 (08:14→13:13)
[2018-08-24] MEDS: FENOFIBRATE 145 MG TABLET PO SCH (08:14)
[2018-08-24 19:20] VITALS: BP 123/83
[2018-08-24] MEDS: QUETIAPINE 100MG TABLET PO SCH (21:17)
[2018-08-24] MEDS: OXCARBAZEPINE 150 MG TABLET PO SCH (21:17)
[2018-08-24] MEDS: MELATONIN 5 MG TABLET PO SCH (21:17)
[2018-08-25 07:20] VITALS: BP 118/73
[2018-08-25] MEDS: ALLOPURINOL 300 MG TABLET PO SCH (08:14)
[2018-08-25] MEDS: FENOFIBRATE 145 MG TABLET PO SCH (08:14)
[2018-08-25] MEDS: BUPROPION SR 150 MG TABLET PO SCH ×2 (08:14→14:26)
[2018-08-25 19:50] VITALS: BP 137/107
[2018-08-25] MEDS: OXCARBAZEPINE 150 MG TABLET PO SCH (20:24)
[2018-08-25] MEDS: MELATONIN 5 MG TABLET PO SCH (20:24)
[2018-08-25] MEDS: ACETAMINOPHEN 325 MG TABLET PO PRN (20:24)
[2018-08-25] MEDS: QUETIAPINE 100MG TABLET PO SCH (20:25)
[2018-08-26 07:29] VITALS: BP 126/82
[2018-08-26] MEDS: BUPROPION SR 150 MG TABLET PO SCH ×2 (08:41→11:48)
[2018-08-26] MEDS: FENOFIBRATE 145 MG TABLET PO SCH (08:41)
[2018-08-26] MEDS: ALLOPURINOL 300 MG TABLET PO SCH (08:41)
[2018-08-26 19:37] VITALS: BP 128/85
[2018-08-26] MEDS: QUETIAPINE 100MG TABLET PO SCH (20:28)
[2018-08-26] MEDS: MELATONIN 5 MG TABLET PO SCH (20:28)
[2018-08-26] MEDS: OXCARBAZEPINE 150 MG TABLET PO SCH (20:28)
[2018-08-27 07:13] VITALS: BP 119/86
[2018-08-27] MEDS: BUPROPION SR 150 MG TABLET PO SCH ×2 (08:04→11:15)
[2018-08-27] MEDS: ALLOPURINOL 300 MG TABLET PO SCH (08:05)
[2018-08-27] MEDS: FENOFIBRATE 145 MG TABLET PO SCH (08:05)
[2018-08-27 19:23] VITALS: BP 142/90
[2018-08-27] MEDS: QUETIAPINE 100MG TABLET PO SCH (20:56)
[2018-08-27] MEDS: MELATONIN 5 MG TABLET PO SCH (20:56)
[2018-08-27] MEDS: OXCARBAZEPINE 150 MG TABLET PO SCH (20:56)
[2018-08-28 07:12] VITALS: BP 132/86
[2018-08-28] MEDS: FENOFIBRATE 145 MG TABLET PO SCH (09:12)
[2018-08-28] MEDS: BUPROPION SR 150 MG TABLET PO SCH ×2 (09:12→12:52)
[2018-08-28] MEDS: ALLOPURINOL 300 MG TABLET PO SCH (09:12)
[2018-08-28 19:27] VITALS: BP 125/92
[2018-08-28] MEDS: QUETIAPINE 100MG TABLET PO SCH (20:10)
[2018-08-28] MEDS: OXCARBAZEPINE 150 MG TABLET PO SCH (20:10)
[2018-08-28] MEDS: MELATONIN 5 MG TABLET PO SCH (20:10)
[2018-08-29 07:11] VITALS: BP 145/90
[2018-08-29] MEDS: FENOFIBRATE 145 MG TABLET PO SCH (08:45)
[2018-08-29] MEDS: BUPROPION SR 150 MG TABLET PO SCH ×2 (08:45→12:05)
[2018-08-29] MEDS: ALLOPURINOL 300 MG TABLET PO SCH (08:45)
[2018-08-29 09:39] VITALS: BP 139/89
[2018-08-29 19:35] VITALS: BP 122/87
[2018-08-29] MEDS: MELATONIN 5 MG TABLET PO SCH (20:03)
[2018-08-29] MEDS: OXCARBAZEPINE 150 MG TABLET PO SCH (20:03)
[2018-08-29] MEDS: QUETIAPINE 100MG TABLET PO SCH (20:03)
[2018-08-30 07:20] VITALS: BP 127/85
[2018-08-30] MEDS: BUPROPION SR 150 MG TABLET PO SCH ×2 (08:07→12:01)
[2018-08-30] MEDS: FENOFIBRATE 145 MG TABLET PO SCH (08:07)
[2018-08-30] MEDS: ACETAMINOPHEN 325 MG TABLET PO PRN (08:07)
[2018-08-30] MEDS: ALLOPURINOL 300 MG TABLET PO SCH (08:07)
[2018-08-30 19:28] VITALS: BP 122/89
[2018-08-30] MEDS: MELATONIN 5 MG TABLET PO SCH (20:16)
[2018-08-30] MEDS: QUETIAPINE 100MG TABLET PO SCH (20:16)
[2018-08-30] MEDS: OXCARBAZEPINE 150 MG TABLET PO SCH (20:16)
[2018-08-31 07:15] VITALS: BP 125/82
[2018-08-31] MEDS: BUPROPION SR 150 MG TABLET PO SCH ×2 (07:45→13:33)
[2018-08-31] MEDS: FENOFIBRATE 145 MG TABLET PO SCH (07:45)
[2018-08-31] MEDS: ALLOPURINOL 300 MG TABLET PO SCH (07:45)
[2018-08-31 09:57] LABS: OCCULT BLOOD NEGATIVE (NEGATIVE)
[2018-08-31] MEDS: ACETAMINOPHEN 325 MG TABLET PO PRN (19:05)
[2018-08-31 19:13] VITALS: BP 141/92
[2018-08-31] MEDS: OXCARBAZEPINE 150 MG TABLET PO SCH (19:57)
[2018-08-31] MEDS: MELATONIN 5 MG TABLET PO SCH (19:57)
[2018-08-31] MEDS: QUETIAPINE 100MG TABLET PO SCH (19:57)
[2018-09-01 07:07] VITALS: BP 126/84
[2018-09-01] MEDS: BUPROPION SR 150 MG TABLET PO SCH ×2 (08:00→12:00)
[2018-09-01] MEDS: FENOFIBRATE 145 MG TABLET PO SCH (09:00)
[2018-09-01] MEDS: ALLOPURINOL 300 MG TABLET PO SCH (09:00)
[2018-09-01 19:47] VITALS: BP 130/94
[2018-09-01] MEDS: ACETAMINOPHEN 325 MG TABLET PO PRN (20:11)
[2018-09-01] MEDS: MELATONIN 5 MG TABLET PO SCH (20:24)
[2018-09-01] MEDS: QUETIAPINE 100MG TABLET PO SCH (20:24)
[2018-09-01] MEDS: OXCARBAZEPINE 150 MG TABLET PO SCH (20:24)
[2018-09-02 07:18] VITALS: BP 132/88
[2018-09-02] MEDS: BUPROPION SR 150 MG TABLET PO SCH ×2 (08:03→11:30)
[2018-09-02] MEDS: FENOFIBRATE 145 MG TABLET PO SCH (08:03)
[2018-09-02] MEDS: ALLOPURINOL 300 MG TABLET PO SCH (08:04)
[2018-09-02] MEDS: ACETAMINOPHEN 325 MG TABLET PO PRN (17:27)
[2018-09-02 19:41] VITALS: BP 135/89
[2018-09-02] MEDS: MELATONIN 5 MG TABLET PO SCH (20:04)
[2018-09-02] MEDS: OXCARBAZEPINE 150 MG TABLET PO SCH (20:04)
[2018-09-02] MEDS: QUETIAPINE 100MG TABLET PO SCH (20:04)
[2018-09-03 07:12] VITALS: BP 130/88
[2018-09-03] MEDS: BUPROPION SR 150 MG TABLET PO SCH ×2 (08:27→14:52)
[2018-09-03] MEDS: FENOFIBRATE 145 MG TABLET PO SCH (08:27)
[2018-09-03] MEDS: ALLOPURINOL 300 MG TABLET PO SCH (08:27)
[2018-09-03 19:29] VITALS: BP 124/93
[2018-09-03] MEDS: MELATONIN 5 MG TABLET PO SCH (20:00)
[2018-09-03] MEDS: OXCARBAZEPINE 150 MG TABLET PO SCH (20:00)
[2018-09-03] MEDS: QUETIAPINE 100MG TABLET PO SCH (20:00)
[2018-09-04 07:20] VITALS: BP 138/82
[2018-09-04] MEDS: BUPROPION SR 150 MG TABLET PO SCH (08:38)
[2018-09-04] MEDS: FENOFIBRATE 145 MG TABLET PO SCH (08:38)
[2018-09-04] MEDS: ALLOPURINOL 300 MG TABLET PO SCH (08:38)
[2018-09-04 19:54] VITALS: BP 126/90
[2018-09-04] MEDS: QUETIAPINE 100MG TABLET PO SCH (21:28)
[2018-09-04] MEDS: ACETAMINOPHEN 325 MG TABLET PO PRN (21:28)
[2018-09-04] MEDS: MELATONIN 5 MG TABLET PO SCH (21:29)
[2018-09-04] MEDS: OXCARBAZEPINE 150 MG TABLET PO SCH (21:29)
[2018-09-05 07:30] VITALS: BP 134/82
[2018-09-05] MEDS: BUPROPION SR 100 MG TABLET PO SCH ×2 (08:11→12:29)
[2018-09-05] MEDS: ALLOPURINOL 300 MG TABLET PO SCH (08:11)
[2018-09-05] MEDS: FENOFIBRATE 145 MG TABLET PO SCH (08:11)
[2018-09-05] MEDS: ACETAMINOPHEN 325 MG TABLET PO PRN (17:21)
[2018-09-05 19:40] VITALS: BP 128/93
[2018-09-05] MEDS: QUETIAPINE 100MG TABLET PO SCH (20:29)
[2018-09-05] MEDS: MELATONIN 5 MG TABLET PO SCH (20:29)
[2018-09-05] MEDS: OXCARBAZEPINE 150 MG TABLET PO SCH (20:29)
[2018-09-06 07:25] VITALS: BP 114/77
[2018-09-06] MEDS: BUPROPION SR 100 MG TABLET PO SCH ×2 (08:15→12:03)
[2018-09-06] MEDS: ALLOPURINOL 300 MG TABLET PO SCH (08:15)
[2018-09-06] MEDS: FENOFIBRATE 145 MG TABLET PO SCH (08:15)
[2018-09-06] MEDS: ACETAMINOPHEN 325 MG TABLET PO PRN (10:50)
[2018-09-06 19:40] VITALS: BP 124/88
[2018-09-06] MEDS: QUETIAPINE 100MG TABLET PO SCH (20:23)
[2018-09-06] MEDS: MELATONIN 5 MG TABLET PO SCH (20:23)
[2018-09-06] MEDS: OXCARBAZEPINE 150 MG TABLET PO SCH (20:23)
[2018-09-07 07:20] VITALS: BP 130/86
[2018-09-07] MEDS: ALLOPURINOL 300 MG TABLET PO SCH (08:07)
[2018-09-07] MEDS: BUPROPION SR 100 MG TABLET PO SCH ×2 (08:07→14:17)
[2018-09-07] MEDS: FENOFIBRATE 145 MG TABLET PO SCH (08:07)
[2018-09-07 19:43] VITALS: BP 128/92
[2018-09-07] MEDS: MELATONIN 5 MG TABLET PO SCH (20:25)
[2018-09-07] MEDS: OXCARBAZEPINE 150 MG TABLET PO SCH (20:25)
[2018-09-07] MEDS: QUETIAPINE 100MG TABLET PO SCH (20:25)
[2018-09-08 07:17] VITALS: BP 118/80
[2018-09-08] MEDS: ALLOPURINOL 300 MG TABLET PO SCH (08:21)
[2018-09-08] MEDS: FENOFIBRATE 145 MG TABLET PO SCH (08:21)
[2018-09-08] MEDS: BUPROPION SR 100 MG TABLET PO SCH ×2 (08:21→12:07)
[2018-09-08 19:39] VITALS: BP 125/87
[2018-09-08] MEDS: QUETIAPINE 100MG TABLET PO SCH (20:31)
[2018-09-08] MEDS: MELATONIN 5 MG TABLET PO SCH (20:31)
[2018-09-08] MEDS: OXCARBAZEPINE 150 MG TABLET PO SCH (20:31)
[2018-09-09 07:53] VITALS: BP 130/93
[2018-09-09] MEDS: BUPROPION SR 100 MG TABLET PO SCH ×2 (08:09→12:31)
[2018-09-09] MEDS: FENOFIBRATE 145 MG TABLET PO SCH (08:09)
[2018-09-09] MEDS: ALLOPURINOL 300 MG TABLET PO SCH (08:09)
[2018-09-09] MEDS: ACETAMINOPHEN 325 MG TABLET PO PRN (12:34)
[2018-09-09] MEDS ORDERED: FENO145T30 PO (17:42)
[2018-09-09] MEDS ORDERED: NAPR-856 PO (17:42)
[2018-09-09] MEDS ORDERED: ALLO300T PO (17:42)
[2018-09-09] MEDS ORDERED: MELA5TAB19 PO (17:42)
[2018-09-09] MEDS ORDERED: BUPR-173 PO (17:42)
[2018-09-09 19:40] VITALS: BP 121/88
[2018-09-09] MEDS: QUETIAPINE 100MG TABLET PO SCH (21:00)
[2018-09-09] MEDS: MELATONIN 5 MG TABLET PO SCH (21:00)
[2018-09-09] MEDS: NAPROXEN 500 MG TABLET PO SCH (21:00)
[2018-09-09] MEDS ORDERED: CARBAMAZEPINE 100 MG TAB.CHEW PO SCH (21:00)
[2018-09-10 07:13] VITALS: BP 131/92
[2018-09-10] MEDS: BUPROPION SR 100 MG TABLET PO SCH (08:23)
[2018-09-10] MEDS: NAPROXEN 500 MG TABLET PO SCH (08:23)
[2018-09-10] MEDS: ALLOPURINOL 300 MG TABLET PO SCH (08:23)
[2018-09-10] MEDS: FENOFIBRATE 145 MG TABLET PO SCH (08:23)
== END 2018-09-10 12:55 | disposition home or self-care (01) | DRG 885 ==
LOC: 3E 20:45
PROVIDERS: ADMIT Psychiatry & Neurology Psychosomatic Medicine; ATTEND Psychiatry & Neurology Psychosomatic Medicine
DX: F31.30 Bipolar disorder, current episode depressed, mild or moderate severity, unspecified (principal); I10 Essential (primary) hypertension; F12.10 Cannabis abuse, uncomplicated; M10.9 Gout, unspecified; E66.9 Obesity, unspecified; G47.00 Insomnia, unspecified; Z79.899 Other long term (current) drug therapy; E78.5 Hyperlipidemia, unspecified; G89.29 Other chronic pain; Z59.0 Homelessness; Z68.34 Body mass index [BMI] 34.0-34.9, adult; Z82.49 Family history of ischemic heart disease and other diseases of the circulatory system; Z81.8 Family history of other mental and behavioral disorders
CPT/HCPCS: 36415; 80053; 80061; 82272; 85025; 93005; J7030